=== PATIENT | female | born 1975 | race Caucasian/White ===

== ENCOUNTER → 2016-03-13 | Day surgery (SDC) | payer BC ==
--- NOTE | 2016-03-06 12:12 | HISTORY & PHYSICAL EXAMINATION ---
DATE OF ADMISSION: 03/13/2016 PREOPERATIVE HISTORY AND PHYSICAL ADMITTING DIAGNOSIS: Desired permanent surgical sterilization. ADMISSION HISTORY: The patient is a 40-year-old 3, para 3 who is admitted for laparoscopic tubal ligation for permanent surgical sterilization. The patient adamantly desires no further childbearing capacity. She understands that this is an irreversible procedure and wishes to proceed. PAST MEDICAL HISTORY: OBSTETRICAL: x3. CUT OFF SAW OPERATOR METAL: As above. MEDICAL: None. SURGICAL: None. ALLERGIES: No known drug allergies. SOCIAL HISTORY: Positive for smoking. FAMILY HISTORY: Noncontributory. REVIEW OF SYSTEMS: As per HPI. ADMISSION PHYSICAL EXAMINATION: GENERAL: Shows a pleasant female in no acute distress. VITAL SIGNS: Blood pressure 114/72 and a weight of 179 pounds. HEENT: Unremarkable. NECK: Supple. LUNGS: Clear. HEART: With a regular rhythm and rate. ABDOMEN: Obese, nontender with no palpable masses. There is no rebound, no guarding, no organomegaly. Positive bowel sounds. PELVIC: Shows normal external genitalia. Vaginal vault is pink and rugated. Cervical os is multiparous and closed. Bimanual examination shows an anterior mobile uterus. The adnexa are not palpable secondary to patient habitus. RECTAL: Confirmatory. EXTREMITIES: Shows no deep calf tenderness. NEUROLOGIC: Grossly intact. IMPRESSION: A 40-year-old G3, P3 requesting permanent surgical sterilization. PLAN: The risks, benefits and alternatives to the surgery have been discussed. While the benefits will be permanent surgical sterilization, the risks are bleeding, infection, inadvertent injury to bowel or bladder, or failure of the procedure itself. Failure rate quoted at 1-3%. The patient understands this, the permit has been signed and she wishes to proceed.
[2016-03-07 08:35] VITALS: Ht 167.6 cm; Wt 80.5 kg
[~2016-03-13] VITALS: Ht 167.6 cm; Wt 80.5 kg
[~2016-03-13] MED LIST: ATROPINE SULFATE 0.1 MG/ML 5ML SYR IV PRN; DEXAMETHASONE SOD INJ 4 MG/ML VIAL ONE; ESMOLOL HCL 10 MG/ML 10 ML VIAL ONE; EpHEDrine SULFATE INJ 50 MG/ML AMP IV PRN; FENTANYL CITRATE INJ 50 MCG/1 ML 2 ML VIAL ONE; GLYCOPYRROLATE INJ 0.2 MG/ML VIAL ONE; HYDROmorphone INJ 1 MG/ML SYR IV PRN; IBUPROFEN 600 MG TAB PO PRN; KETOROLAC TROMETHAMINE 30 MG/ML VIAL IV. PRN; KETOROLAC TROMETHAMINE 30 MG/ML VIAL ONE; LABETALOL HCL IV 5 MG/ML 20ML IV PRN; LACTATED RINGER'S 1000ML 1,000 ML IV SCH; MIDAZOLAM HCL 1 MG/ML 2ML VIAL ONE; NALOXONE HCL 0.4 MG/1 ML VIAL/CARP IV PRN; NEOSTIGMINE METHYLSULFATE 5 MG/5 ML SYR ONE; ONDANSETRON INJ 2 MG/ML 2 ML VIAL IV PRN; ONDANSETRON INJ 2 MG/ML 2 ML VIAL ONE; OXYC-57 PO; OXYCODONE/ACETAMINOPHEN 5-325 TAB PO PRN; OXYM0.056 NAE; PRENTAB26 PO; PROMETHAZINE HCL INJ 12.5 MG in SODIUM CHLORIDE 0.9% 50ML 50 ML IV PRN; PROPOFOL IV EMULSION 10 MG/ML 20 ML VIAL IV ONE; SODIUM CHLORIDE 0.9% 1000ML 1,000 ML IV SCH
--- NOTE | 2016-03-13 07:59 | History & Physical Bridge - SC ---
H&P Re-Evaluation Bridge Note: I have examined the patient, reviewed the History & Physical and in the interval since the performance of the History & Physical I have noted the following changes of clinical significance: No changes noted
--- NOTE | 2016-03-13 08:45 | [facility] Post Operative Brief Note ---
Immediate Operative Summary Operative Date Mar 13, 2016. Pre-Operative Diagnosis 1)Desires Sterilization Post-Operative Diagnosis 1) same, 2) Endocervical Polyp Procedure(s) Performed Laparoscopic Tubal Sterilization, Cervical Polypectomy Surgeon Dr. Odalys De Santiago Wiper Blender Surgeon(s) 0 Estimated Blood Loss minimal Findings Small endocervical polyp excised; laparoscopic exam of pelvis, normal appearing tubes and ovaries, bilateral fulguration till resistance met zero Fluids (cc crystalloids) 800 Specimens A. Cervical Polyp Drains None Anesthesia General Complication(s) None Disposition Recovery Room / PACU
--- NOTE | 2016-03-13 08:45 | Medical Student: [facility] ---
Operative Report Operative Date Mar 13, 2016. Pre-Operative Diagnosis sterilization Post-Operative Diagnosis laparoscopic tubal sterilization and endocervical polyp Procedure(s) Performed laparoscopic tubal sterilization and cervical polypectomy Surgeon Dr. De Santiago [employer] Farmworker Surgeon(s) none Estimated Blood Loss minimal Findings endocervical polyp, normal fallopian tubes, normal ovaries R>L, normal uterus with ligaments, both ureters visualized, normal bowel, liver, and stomach. Fluids (cc crystalloids) 800mls Specimens cervical polyp Drains bladder drained prior to procedure Anesthesia general Complication(s) None Disposition Recovery Room / PACU Implants none
--- NOTE | 2016-03-13 08:49 | Discharge Instructions-SurgCtr ---
Discharge Instructions Visit Reason for Visit: Desires Sterilization Discharge Discharge Diagnosis / Problem: same Discharge Goals Goal(s): Therapeutic intervention Activity Recommendations Activity Limitations: as noted below Anesthesia . Post Anesthesia Instructions: If you have had General Anesthesia or IV Sedation: * Do not drive today. * Resume driving when surgeon permits. * Do not make important decisions or sign legal documents today. * Call surgeon for: 1. Temperature elevations greater than 101 degrees F. 2. Uncontrollable pain. 3. Excessive bleeding. 4. Persistent nausea and vomiting. 5. Medication intolerance (nausea, vomiting or rash). * For nausea and vomiting use only clear liquids such as: tea, soda, bouillon until nausea subsides, then gradually increase diet as tolerated. * If you have any concerns or questions, call your surgeon's office. If physician is unavailable and it is an emergency, call 911 or go to the nearest emergency room. . Instructions / Follow-Up Instructions / Follow-Up ACTIVITY RECOMMENDATIONS: * Rest the first 2-3 days. You should be back to your normal activity levels by day 3. * No heavy lifting for 2 weeks. * No intercourse, tampons or douching for 1-2 weeks. * You may shower the next day. * Do not drive anytime that you are taking narcotic pain medicines. RETURN TO SCHOOL/WORK: * May return to school or work after 2-3 days. DIET: Nausea may occur in the immediate post-operative period. If so, take clear liquids such as tea, bouillon, apple juice until all nausea has subsided, then resume usual diet. MEDICATIONS: Resume previous medications unless instructed otherwise by your surgeon. Ibuprofen 200mg 2-3 tablets every 4-6 hours as needed -- OR -- Aleve 2 tablets every 8-12 hours as needed for post-operative discomfort Medications are over the counter. Tylenol may be used if above medications are contraindicated or not preferred. Medication should be taken with food or milk. Do not take on an empty stomach. SPECIAL CARE INSTRUCTIONS: * Check temperature twice daily for one week. report any elevation over 101 degrees. * You may experience some vagina spotting and/or bleeding. This is normal for 1 -2 weeks and should not be heavier than a normal period. If it is unusual in amount, call your physician. * Post-operative discomfort may consist of a sore throat, a "bloated" feeling and pain in the shoulders. these are normal symptoms, which usually only last for 2-3 days. * Remove band-aids tomorrow and shower. There is no need to replace band-aids unless there is drainage or discomfort. FOLLOW UP VISIT: Call your doctor's office for a post-operative 2 week visit if not already scheduled. Diet Recommendations Home Diet: resume previous diet Procedures Procedures Performed: Laparoscopic Tubal Sterilization, Cervical Polypectomy Pending Studies Studies pending at discharge: yes List of pending studies: Pathology on cervical polyp Medical Emergencies . Who to Call and When: Medical Emergencies: If at any time you feel your situation is an emergency, please call 911 immediately. . Non-Emergent Contact Non-Emergency issues call your: Project Eng Call Non-Emergent contact if: you have a fever, temperature is above 100.5, your pain is not controlled, wound has increased drainage, wound has increased redness . . "Provider Documentation" section prepared by Luis Manuel De Santiago.
[2016-03-13 09:55] VITALS: TEMP 36.7
--- NOTE | 2016-03-13 10:03 | Anesthesia Progress Nt - [facility] ---
Anesthesia Post Op Note Date & Time Mar 13, 2016 at 10:04 Vital Signs Pain Intensity: 7.0 Vital Signs Past 12 Hours Date Time Temp Pulse Resp B/P Pulse Ox O2 Delivery O2 Flow Rate FiO2 03/13/16 09:55 36.7 67 20 119/87 100 Room Air 03/13/16 09:38 127/78 03/13/16 09:35 56 20 03/13/16 09:35 55 20 98 03/13/16 09:33 113/73 03/13/16 09:30 70 20 03/13/16 09:30 71 20 100 03/13/16 09:28 112/70 03/13/16 09:28 36.6 61 16 113/73 99 Room Air 03/13/16 09:25 48 13 100 03/13/16 09:25 48 13 03/13/16 09:23 121/66 03/13/16 09:20 47 15 100 03/13/16 09:20 46 15 03/13/16 09:19 49 15 100 03/13/16 09:19 51 15 03/13/16 09:14 50 14 100 03/13/16 09:14 52 14 03/13/16 09:13 127/71 03/13/16 09:09 60 13 03/13/16 09:09 63 13 126/63 100 03/13/16 09:04 54 16 03/13/16 09:04 54 16 100 03/13/16 09:03 50 14 121/75 100 03/13/16 09:03 51 14 03/13/16 08:58 57 16 127/81 100 03/13/16 08:58 58 16 03/13/16 08:53 36.6 87 12 119/81 100 Diffusion Mask 6 03/13/16 08:53 72 15 03/13/16 08:53 73 15 120/77 100 03/13/16 06:41 36.7 87 16 112/79 100 Room Air Notes Mental Status: alert / awake / arousable, participated in evaluation Pt Amnestic to Procedure: Yes Nausea / Vomiting: adequately controlled Pain: adequately controlled Airway Patency, RR, SpO2: stable & adequate BP & HR: stable & adequate Hydration State: stable & adequate Anesthetic Complications: no major complications apparent
[2016-03-13 10:14] VITALS: BP 111/61; PULSE 61; O2SAT 100
--- NOTE | 2016-03-13 10:50 | OPERATIVE REPORT ---
DATE OF OPERATION: 03/13/2016 PREOPERATIVE DIAGNOSIS: Desired permanent surgical sterilization. POSTOPERATIVE DIAGNOSES: 1. Same. 2. Endocervical polyp. PROCEDURES PERFORMED: 1. Cervical polypectomy. 2. Laparoscopic tubal ligation. SURGEON: Dr. De Santiago. ANESTHESIA: General. FINDINGS: Examination of the cervix showed a small endocervical polyp which was excised using an Allis clamp. Laparoscopic examination of the pelvis showed normal appearing uterus, tubes and ovaries bilaterally, bilateral fulguration of the fallopian tube in proximal third and 3 contiguous mckeon until resistance met 0. PROCEDURE IN DETAIL: The patient was taken to the operating room, and after general anesthesia, was placed in dorsal lithotomy position and draped and prepped in the usual fashion. Bladder was drained of any residual urine. Single-tooth tenaculum was used to grasp the anterior lip of the cervix. Endocervical polyp approximately 1 x 1 cm was noted, this was grasped with Allis, and in a twisting fashion, was excised and sent for pathological evaluation. [place] cannula was inserted into the cervical os and fastened to the tenaculum. Small subumbilical incision was made and a Veress needle was introduced into the pelvic cavity which was then insufflated with 3 liters of CO2. Veress needle was removed and the sharp trocar was used to introduce the laparoscope. Pelvic organs were visualized, and then under direct laparoscopic guidance, a suprapubic trocar was used to introduce the stirring probe. Pelvic organs were visualized with description as above. Stirring probe was removed. Bipolar cautery instrument inserted through the suprapubic trocar and 3 contiguous mckeon of the tubes bilaterally until resistance met 0. Hemostasis present. CO2 was allowed to escape from the cavity. The trocars were removed under direct laparoscopic guidance. The skin incisions were closed with 4-0 Vicryl subcuticular stitches. Sterile dressings were applied. Tenaculum and acorn cannula were removed from the cervix. The patient was taken out of dorsal lithotomy and to recovery room in satisfactory condition. I attest to the content of the Intraoperative Record and any orders documented therein. Any exceptio ns are noted below.
== END | disposition home or self-care (01) ==
LOC: X.SURG 06:33
PROVIDERS: ATTEND Obstetrics & Gynecology
DX: Z30.2 Encounter for sterilization (principal); N84.1 Polyp of cervix uteri; F17.200 Nicotine dependence, unspecified, uncomplicated; E66.9 Obesity, unspecified